=== PATIENT | female | born 1955 | race Caucasian/White ===

== ENCOUNTER 2025-09-07 12:15 | Inpatient (IN) ==
[2025-09-07] MEDS ORDERED: IOPAMIDOL 100 ML BOTTLE IV ONE ×2 (12:16)
[2025-09-07] MEDS: 0.9 % SODIUM CHLORIDE 1,000 ML IV ONE ×3 (12:54→19:13)
[2025-09-07 13:04] LABS: Basophils # (Auto) 0.03 K/mcL (0.00-0.30); Basophils % (Auto) 0.3 % (0.0-2.0); Eosinophils # (Auto) 0.02 K/mcL (0.00-0.70); Eosinophils % (Auto) 0.2 % (0.0-7.0); Hematocrit 33.6 % (34.1-44.9); Hemoglobin 11.3 g/dL (11.2-15.7); Lymphocytes # (Auto) 2.41 K/mcL (1.50-4.80); Lymphocytes % (Auto) 22.0 % (15.5-49.0); Mean Corpuscular HGB Conc 33.6 g/dL (31.0-36.0); Monocytes # (Auto) 0.56 K/mcL (0.10-0.90); Monocytes % (Auto) 5.1 % (1.0-12.0); Neutrophils % (Auto) 72.0 % (38.0-78.0); Platelet Count 448 K/mcL (140-440); RBC 3.39 M/mcL (3.59-5.38); WBC 10.9 K/mcL (4.5-11.0)
[2025-09-07 13:30] LABS: ALT/SGPT 16 U/L (<40); AST/SGOT 33 U/L (<32); Albumin 3.0 gm/dL (3.2-5.2); Albumin/Globulin Ratio 1.1 (1.0-2.3); Alkaline Phosphatase 121 U/L (39-117); Anion Gap 10.0 (8.0-16.0); Bilirubin,Total 0.4 mg/dL (0.1-1.0); Blood Urea Nitrogen 24 mg/dL (8-23); Calcium 8.9 mg/dL (8.6-10.4); Carbon Dioxide 20 mmol/L (22-30); Chloride 100 mmol/L (96-108); Globulin 2.8 gm/dL (2.2-3.7); Glucose 86 mg/dL (70-105); Potassium 5.4 mmol/L (3.3-5.1); Sodium 130 mmol/L (133-145)
[2025-09-07] MEDS: DEXTROSE 50% 50 ML VIAL IV ONE (13:53)
[2025-09-07] MEDS: INSULIN REGULAR, HUMAN 1 UNIT/0.01 ML UNIT IV ONE (13:55)
[2025-09-07 16:19] LABS: Anion Gap 9.0 (8.0-16.0); Blood Urea Nitrogen 23 mg/dL (8-23); Calcium 7.6 mg/dL (8.6-10.4); Carbon Dioxide 18 mmol/L (22-30); Chloride 106 mmol/L (96-108); Glucose 92 mg/dL (70-105); Potassium 4.2 mmol/L (3.3-5.1); Sodium 133 mmol/L (133-145)
[2025-09-07] MEDS: NOREPINEPHRINE 250 ML IV SCH (16:25)
[2025-09-07] MEDS: DEXTROSE 50% 50 ML SYRINGE IV ONE ×2 (17:03)
[2025-09-07] MEDS: NALOXONE HCL 0.4 MG/ML VIAL IV ONE (17:10)
[2025-09-07] MEDS: VANCOMYCIN 1,000 MG in 0.9 % SODIUM CHLORIDE 250 ML IV ONE (17:20)
[2025-09-07 17:41] LABS: Bilirubin,Urine NEGATIVE (Negative); Color,Urine LT. YELLOW; Glucose,Urine (UA) NEGATIVE (Negative); Ketones,Urine NEGATIVE (Negative); Leukocyte Esterase,Urine NEGATIVE /uL (Negative); PH,Urine 6.0 (5.0-9.0); Protein,Urine NEGATIVE (Negative); Specific Gravity,Urine 1.010 (1.000-1.035); Urobilinogen,Urine 0.2 mg/dL
[2025-09-07] MEDS: ATROPINE SULFATE 1 MG/10 ML SYRINGE IV ONE (18:11)
[2025-09-07 18:22] LABS: Barbiturate Screen,Urine None detected; Benzodiazepines Screen,Urine None detected; Fentanyl, Urine Screen None Detected; Opiate Screen,Urine Suspect Positive; Oxycodone, Urine Screen None detected; Phencyclidine Screen,Urine None detected
[2025-09-07] MEDS: NALOXONE 2 MG/2 ML SYRINGE IV ONE (19:03)
[2025-09-07] MEDS: 0.9 % SODIUM CHLORIDE 250 ML IV SCH (19:13)
[2025-09-07] MEDS: 0.9 % SODIUM CHLORIDE 1,000 ML IV SCH (19:19)
[2025-09-07] MEDS ORDERED: VANCOMYCIN PER PHARMACY IV SCH (20:35)
[2025-09-07] MEDS ORDERED: IPRATROPIUM/ALBUTEROL 3 ML AMPUL.NEB NEB PRN (20:35)
[2025-09-07] MEDS ORDERED: DEXTROSE 50% 50 ML VIAL IV PRN (20:35)
[2025-09-07] MEDS ORDERED: DEXTROSE 31 GM ORAL.SUSP PO PRN (20:35)
[2025-09-07 21:10] LABS: C-Reactive Protein 0.75 mg/dL (0.03-0.80)
[2025-09-07 21:20] LABS: Estimated Average Glucose(eAG) 111.0 mg/dL; Hemoglobin A1C 5.5 % Hgb (4.0-6.0)
[2025-09-07] MEDS: ACETAMINOPHEN 325 MG TABLET PO PRN (21:45)
[2025-09-07] MEDS: CALCIUM CARBONATE 500 MG TAB.CHEW PO SCH (21:46)
[2025-09-07] MEDS: DOCUSATE SODIUM 100 MG CAPSULE PO SCH (21:47)
[2025-09-07] MEDS ORDERED: ALBUTEROL SULFATE 60 PUFF INHALER INH PRN (21:48)
[2025-09-07] MEDS: INSULIN LISPRO 1 UNIT/0.01 ML UNIT SQ SCH (21:51)
[2025-09-07] MEDS: MEROPENEM 0.5 GM in 0.9 % SODIUM CHLORIDE 50 ML IV SCH (22:21)
[2025-09-07] MEDS: 0.9 % SODIUM CHLORIDE 10 ML SYRINGE IV SCH (22:21)
[2025-09-07] MEDS: GABAPENTIN 300 MG CAPSULE PO SCH (22:32)
[2025-09-08 07:08] LABS: Phosphorous 2.6 mg/dL (2.5-4.5)
[2025-09-08 07:12] LABS: Basophils # (Auto) 0.01 K/mcL (0.00-0.30); Basophils % (Auto) 0.1 % (0.0-2.0); Eosinophils # (Auto) 0.03 K/mcL (0.00-0.70); Eosinophils % (Auto) 0.2 % (0.0-7.0); Hematocrit 29.5 % (34.1-44.9); Hemoglobin 9.9 g/dL (11.2-15.7); Lymphocytes # (Auto) 1.67 K/mcL (1.50-4.80); Lymphocytes % (Auto) 13.3 % (15.5-49.0); Mean Corpuscular HGB Conc 33.6 g/dL (31.0-36.0); Monocytes # (Auto) 1.00 K/mcL (0.10-0.90); Monocytes % (Auto) 8.0 % (1.0-12.0); Neutrophils % (Auto) 78.3 % (38.0-78.0); Platelet Count 414 K/mcL (140-440); RBC 2.94 M/mcL (3.59-5.38); WBC 12.5 K/mcL (4.5-11.0)
[2025-09-08 07:52] LABS: ALT/SGPT 15 U/L (<40); AST/SGOT 30 U/L (<32); Albumin 2.4 gm/dL (3.2-5.2); Albumin/Globulin Ratio 1.0 (1.0-2.3); Alkaline Phosphatase 100 U/L (39-117); Anion Gap 8.0 (8.0-16.0); Bilirubin,Total 0.2 mg/dL (0.1-1.0); Blood Urea Nitrogen 14 mg/dL (8-23); Calcium 7.4 mg/dL (8.6-10.4); Carbon Dioxide 17 mmol/L (22-30); Chloride 107 mmol/L (96-108); Globulin 2.4 gm/dL (2.2-3.7); Glucose 128 mg/dL (70-105); Potassium 4.5 mmol/L (3.3-5.1); Sodium 132 mmol/L (133-145)
[2025-09-08] MEDS: SENNOSIDES 1 TABLET PO SCH (07:52)
[2025-09-08] MEDS: PANTOPRAZOLE 40 MG TABLET PO SCH (08:57)
[2025-09-08] MEDS: VITAMIN D3 25 MCG TABLET PO SCH (08:57)
[2025-09-08] MEDS: ENOXAPARIN 40 MG/0.4 ML SYRINGE SQ SCH (08:57)
[2025-09-08] MEDS: MIDODRINE 5 MG TABLET PO SCH (08:57)
[2025-09-08] MEDS: VITAMIN B COMPLEX 1 CAPSULE PO SCH (08:57)
[2025-09-08] MEDS: ASPIRIN 81 MG TAB.CHEW PO SCH (08:57)
[2025-09-08] MEDS: ALLOPURINOL 300 MG TABLET PO SCH (08:57)
[2025-09-08] MEDS ORDERED: VITAMIN D3 125 MCG TABLET PO SCH (09:00)
[2025-09-08] MEDS ORDERED: CALCIUM CARBONATE 500 MG TAB.CHEW PO SCH (09:00)
[2025-09-08] MEDS: MAGNESIUM SULFATE 4 GM/100 ML BAG IV SCH (11:21)
[2025-09-08] MEDS: cefTRIAXone 2 GM in DEXTROSE 5% IN WATER 50 ML IV SCH (12:36)
[2025-09-08] MEDS: GABAPENTIN 300 MG CAPSULE PO SCH (15:19)
[2025-09-08] MEDS ORDERED: VANCOMYCIN 750 MG in 0.9 % SODIUM CHLORIDE 250 ML IV SCH (16:00)
[2025-09-08] MEDS: ATORVASTATIN 40 MG TABLET PO SCH (20:10)
[2025-09-09 05:37] LABS: Basophils # (Auto) 0.02 K/mcL (0.00-0.30); Basophils % (Auto) 0.2 % (0.0-2.0); Eosinophils # (Auto) 0.13 K/mcL (0.00-0.70); Eosinophils % (Auto) 1.3 % (0.0-7.0); Hematocrit 30.8 % (34.1-44.9); Hemoglobin 10.3 g/dL (11.2-15.7); Lymphocytes # (Auto) 3.85 K/mcL (1.50-4.80); Lymphocytes % (Auto) 38.0 % (15.5-49.0); Mean Corpuscular HGB Conc 33.4 g/dL (31.0-36.0); Monocytes # (Auto) 0.73 K/mcL (0.10-0.90); Monocytes % (Auto) 7.2 % (1.0-12.0); Neutrophils % (Auto) 53.1 % (38.0-78.0); Platelet Count 419 K/mcL (140-440); RBC 3.06 M/mcL (3.59-5.38); WBC 10.1 K/mcL (4.5-11.0)
[2025-09-09 06:00] LABS: Iron 55 ug/dL (37-145); Prealbumin 13.9 mg/dL (20.0-40.0); TIBC Calculation 109 ug/dl (228-428); Transferrin % Saturation 50 % (15-50)
[2025-09-09 06:01] LABS: Phosphorous 2.1 mg/dL (2.5-4.5)
[2025-09-09 06:19] LABS: Folate 4.0 ng/mL (4.2-19.9)
[2025-09-09 06:21] LABS: ALT/SGPT 13 U/L (<40); AST/SGOT 25 U/L (<32); Albumin 2.3 gm/dL (3.2-5.2); Albumin/Globulin Ratio 0.9 (1.0-2.3); Alkaline Phosphatase 103 U/L (39-117); Anion Gap 8.0 (8.0-16.0); Bilirubin,Total < 0.2 mg/dL (0.1-1.0); Blood Urea Nitrogen 8 mg/dL (8-23); Calcium 7.1 mg/dL (8.6-10.4); Carbon Dioxide 16 mmol/L (22-30); Chloride 110 mmol/L (96-108); Globulin 2.5 gm/dL (2.2-3.7); Glucose 116 mg/dL (70-105); Potassium 4.2 mmol/L (3.3-5.1); Sodium 134 mmol/L (133-145)
[2025-09-09] MEDS: CALCIUM GLUCONATE 9.3 MEQ in DEXTROSE 5% IN WATER 50 ML IV ONE (10:12)
[2025-09-09] MEDS: POTASSIUM PHOSPHATE 20 MEQ in DEXTROSE 5% IN WATER 250 ML IV ONE (11:00)
[2025-09-09] MEDS: ONDANSETRON 4 MG/2 ML VIAL IV PRN (21:43)
[2025-09-10 06:01] LABS: Basophils # (Auto) 0.03 K/mcL (0.00-0.30); Basophils % (Auto) 0.3 % (0.0-2.0); Eosinophils # (Auto) 0.09 K/mcL (0.00-0.70); Eosinophils % (Auto) 1.0 % (0.0-7.0); Hematocrit 32.7 % (34.1-44.9); Hemoglobin 11.0 g/dL (11.2-15.7); Lymphocytes # (Auto) 2.64 K/mcL (1.50-4.80); Lymphocytes % (Auto) 29.3 % (15.5-49.0); Mean Corpuscular HGB Conc 33.6 g/dL (31.0-36.0); Monocytes # (Auto) 0.57 K/mcL (0.10-0.90); Monocytes % (Auto) 6.3 % (1.0-12.0); Neutrophils % (Auto) 62.9 % (38.0-78.0); Platelet Count 432 K/mcL (140-440); RBC 3.30 M/mcL (3.59-5.38); WBC 9.0 K/mcL (4.5-11.0)
[2025-09-10 06:09] LABS: Phosphorous 2.3 mg/dL (2.5-4.5)
[2025-09-10 06:49] LABS: ALT/SGPT 17 U/L (<40); AST/SGOT 36 U/L (<32); Albumin 2.5 gm/dL (3.2-5.2); Albumin/Globulin Ratio 1.0 (1.0-2.3); Alkaline Phosphatase 112 U/L (39-117); Anion Gap 9.0 (8.0-16.0); Bilirubin,Total 0.2 mg/dL (0.1-1.0); Blood Urea Nitrogen 6 mg/dL (8-23); Calcium 7.4 mg/dL (8.6-10.4); Carbon Dioxide 18 mmol/L (22-30); Chloride 111 mmol/L (96-108); Globulin 2.6 gm/dL (2.2-3.7); Glucose 110 mg/dL (70-105); Potassium 4.2 mmol/L (3.3-5.1); Sodium 138 mmol/L (133-145)
[2025-09-10] MEDS: BENZOCAINE/MENTHOL 1 LOZENGE PO PRN (08:55)
[2025-09-10] MEDS: MEGESTROL ACETATE 400 MG/10 ML UDC PO SCH (11:30)
[2025-09-10 14:44] LABS: C-Reactive Protein 1.18 mg/dL (0.03-0.80)
[2025-09-11 06:46] LABS: Basophils # (Auto) 0.04 K/mcL (0.00-0.30); Basophils % (Auto) 0.4 % (0.0-2.0); Eosinophils # (Auto) 0.21 K/mcL (0.00-0.70); Eosinophils % (Auto) 2.3 % (0.0-7.0); Hematocrit 27.5 % (34.1-44.9); Hemoglobin 9.2 g/dL (11.2-15.7); Lymphocytes # (Auto) 3.57 K/mcL (1.50-4.80); Lymphocytes % (Auto) 39.4 % (15.5-49.0); Mean Corpuscular HGB Conc 33.5 g/dL (31.0-36.0); Monocytes # (Auto) 0.70 K/mcL (0.10-0.90); Monocytes % (Auto) 7.7 % (1.0-12.0); Neutrophils % (Auto) 50.1 % (38.0-78.0); Platelet Count 348 K/mcL (140-440); RBC 2.71 M/mcL (3.59-5.38); WBC 9.1 K/mcL (4.5-11.0)
[2025-09-11 06:53] LABS: ALT/SGPT 17 U/L (<40); AST/SGOT 37 U/L (<32); Albumin 2.1 gm/dL (3.2-5.2); Albumin/Globulin Ratio 1.0 (1.0-2.3); Alkaline Phosphatase 87 U/L (39-117); Anion Gap 7.0 (8.0-16.0); Bilirubin,Total < 0.2 mg/dL (0.1-1.0); Blood Urea Nitrogen 6 mg/dL (8-23); Calcium 7.0 mg/dL (8.6-10.4); Carbon Dioxide 17 mmol/L (22-30); Chloride 113 mmol/L (96-108); Globulin 2.1 gm/dL (2.2-3.7); Glucose 91 mg/dL (70-105); Potassium 4.0 mmol/L (3.3-5.1); Sodium 137 mmol/L (133-145)
[2025-09-11 06:54] LABS: Phosphorous 1.8 mg/dL (2.5-4.5)
[2025-09-11 06:55] LABS: C-Reactive Protein 0.90 mg/dL (0.03-0.80)
[2025-09-11] MEDS: LACTATED RINGERS 1,000 ML IV SCH (08:37)
[2025-09-11] MEDS ORDERED: ALTEPLASE 2 MG VIAL IV PRN (09:10)
[2025-09-11] MEDS ORDERED: 0.9 % SODIUM CHLORIDE 10 ML SYRINGE IV PRN (09:10)
[2025-09-11] MEDS: SODIUM PHOSPHATE 30 MMOL in DEXTROSE 5% IN WATER 500 ML IV SCH (09:13)
[2025-09-11] MEDS: LACTATED RINGERS 500 ML IV ONE ×2 (10:30→14:50)
[2025-09-11] MEDS ORDERED: SODIUM CHLORIDE IRRIG SOLUTION 500 ML BOTTLE IRR ONE (13:14)
[2025-09-11] MEDS ORDERED: HEPARIN 10 UNITS/ML 5ML FLUSH IV ONE (13:14)
[2025-09-11] MEDS ORDERED: LIDOCAINE 1% 10 ML VIAL SQ ONE (13:14)
[2025-09-11] MEDS: NOREPINEPHRINE 250 ML IV SCH (15:00)
[2025-09-11] MEDS: SODIUM PHOSPHATE 30 MMOL in DEXTROSE 5% IN WATER 500 ML IV ONE (18:42)
[2025-09-11] MEDS: HEPARIN 10 UNITS/ML 5ML FLUSH IV SCH ×2 (21:27→21:42)
[2025-09-11] MEDS: 0.9 % SODIUM CHLORIDE 10 ML SYRINGE IV SCH (21:27)
[2025-09-11] MEDS: MELATONIN 3 MG TABLET PO PRN (22:11)
[2025-09-12 01:22] VITALS: TEMP 97.3
[2025-09-12 07:02] LABS: Basophils # (Auto) 0.02 K/mcL (0.00-0.30); Basophils % (Auto) 0.2 % (0.0-2.0); Eosinophils # (Auto) 0.28 K/mcL (0.00-0.70); Eosinophils % (Auto) 3.0 % (0.0-7.0); Hematocrit 28.3 % (34.1-44.9); Hemoglobin 9.4 g/dL (11.2-15.7); Lymphocytes # (Auto) 2.93 K/mcL (1.50-4.80); Lymphocytes % (Auto) 31.5 % (15.5-49.0); Mean Corpuscular HGB Conc 33.2 g/dL (31.0-36.0); Monocytes # (Auto) 0.79 K/mcL (0.10-0.90); Monocytes % (Auto) 8.5 % (1.0-12.0); Neutrophils % (Auto) 56.6 % (38.0-78.0); Platelet Count 322 K/mcL (140-440); RBC 2.77 M/mcL (3.59-5.38); WBC 9.3 K/mcL (4.5-11.0)
[2025-09-12 07:18] LABS: ALT/SGPT 16 U/L (<40); AST/SGOT 27 U/L (<32); Albumin 2.0 gm/dL (3.2-5.2); Albumin/Globulin Ratio 1.0 (1.0-2.3); Alkaline Phosphatase 80 U/L (39-117); Anion Gap 8.0 (8.0-16.0); Bilirubin,Total < 0.2 mg/dL (0.1-1.0); Blood Urea Nitrogen 5 mg/dL (8-23); C-Reactive Protein 0.82 mg/dL (0.03-0.80); Calcium 6.7 mg/dL (8.6-10.4); Carbon Dioxide 15 mmol/L (22-30); Chloride 113 mmol/L (96-108); Globulin 2.1 gm/dL (2.2-3.7); Glucose 87 mg/dL (70-105); Potassium 3.7 mmol/L (3.3-5.1); Sodium 136 mmol/L (133-145)
[2025-09-12] MEDS: FLUDROCORTISONE 0.1 MG TABLET PO SCH (10:01)
[2025-09-12] MEDS: MAGNESIUM SULFATE 1 GM/100 ML BAG IV ONE (10:05)
[2025-09-12] MEDS: SODIUM BICARBONATE VIAL 150 MEQ in WATER FOR INJECTION,STERILE 850 ML IV SCH (10:05)
[2025-09-12 10:21] LABS: VBG HCO3 14.7 mmol/L (24.0-28.0); VBG PCO2 25.1 mmHg (41.0-51.0); VBG PH 7.39 U (7.32-7.42); VBG PO2 31.3 mmHg (25.0-40.0)
[2025-09-12] MEDS: HYDROCORTISONE SOD SUCC 100 MG VIAL IV SCH ×2 (10:42→11:21)
[2025-09-12] MEDS: CALCIUM GLUCONATE 9.3 MEQ in DEXTROSE 5% IN WATER 50 ML IV ONE (11:04)
[2025-09-12] MEDS: LACTATED RINGERS 500 ML IV ONE (11:22)
[2025-09-12 13:15] LABS: POC Blood Urea Nitrogen 4.0 (6-20); POC CO2 16.0 (22-30); POC Calcium, Ionized 1.07 (1.16-1.32); POC Glucose, Random 151.0 (70-105)
[2025-09-12 13:39] VITALS: O2SAT 96
== END 2025-09-12 13:25 | disposition short-term general hospital (02) | DRG 871 ==
LOC: ED 12:15 → ICU 20:34
PROVIDERS: ADMIT Internal Medicine; ATTEND Student in an Organized Health Care Education/Training Program